=== PATIENT | male | born 1985 | race African-American/Black ===

== ENCOUNTER 2019-11-16 19:28 | Emergency (ER) | payer MEDICAID ==
[2019-11-16] MEDS ORDERED: HYDROCODONE/ACETAMINOPHEN 5-325 MG TABLET PO ONE (20:33)
[2019-11-16] MEDS ORDERED: CEPHALEXIN 500 MG CAPSULE PO ONE (20:33)
--- NOTE | 2019-11-16 20:33 | ER Document Report ---
ED Medical Screen (RME) - General Chief Complaint: Knee Pain Stated Complaint: KNEE PAIN Time Seen by Provider: 11/16/19 20:25 TRAVEL OUTSIDE OF THE U.S. IN LAST 30 DAYS: No - HPI Notes: 11/16/19 20:32 Patient is a 34-year-old male who had a bursitis surgery performed at [facility] a couple days ago and discharged today from the hospital presents because he continues to have right knee pain, but [facility] will not give him any of his medicines as he does not have an ID card. He was prescribed pain medicine as well as an antibiotic. No fever or chest pain. Patient states that he does not get paid until next months we cannot get or afford an ID card at this time. Patient would benefit from social work consult. I have treated and performed a rapid initial assessment of this patient. A comp rehensive ED assessment and evaluation of the patient, analysis of test results and completion of medical decision making process will be conducted by additional ED providers. PHYSICAL EXAMINATION: GENERAL: Well-appearing, well-nourished and in no acute distress. A&Ox4. Answers questions appropriately. Right knee: There is scant discharge noted from the 1 suture site, but sutures otherwise in place at this time. - Related Data Allergies/Adverse Reactions: No Known Allergies Allergy (Verified 05/08/15 16:48) Past Medical History Pulmonary Medical History: Reports: Hx Asthma - as child Skin Medical History: Reports Hx MRSA - + culture today - Immunizations Hx Diphtheria, Pertussis, Tetanus Vaccination: No Physical Exam - Vital signs Vitals: Temp Pulse Resp BP Pulse Ox 98.9 F 96 18 128/64 H 100 11/16/19 19:54 11/16/19 19:54 11/16/19 19:54 11/16/19 19:54 11/16/19 19:54 Course - Vital Signs Vital signs: Temp Pulse Resp BP Pulse Ox 98.9 F 96 18 128/64 H 100 11/16/19 19:54 11/16/19 19:54 11/16/19 19:54 11/16/19 19:54 11/16/19 19:54
[2019-11-16 22:01] LABS: ABSOLUTE BASOPHILS # (AUTO) 0.1 10^3/uL (0.0-0.2); ABSOLUTE EOSINOPHILS # (AUTO) 0.2 10^3/uL (0.0-0.6); ABSOLUTE LYMPHOCYTES (AUTO) 1.7 10^3/uL (0.5-4.7); ABSOLUTE MONOCYTES (AUTO) 0.4 10^3/uL (0.1-1.4); ABSOLUTE NEUT (AUTO) 2.9 10^3/uL (1.7-8.2); BASOPHILS % (AUTO) 1.2 % (0-2); EOSINOPHILS % (AUTO) 3.1 % (0-6); HEMATOCRIT 39.7 % (37.9-51.0); HEMOGLOBIN 13.1 g/dL (13.5-17.0); MEAN CORPUSCULAR HEMOGLOBIN 26.8 pg (27.0-33.4); MEAN CORPUSCULAR HGB CONC 32.9 g/dL (32.0-36.0); MEAN CORPUSCULAR VOLUME 82 fl (80-97); MONOCYTES % (AUTO) 8.4 % (3-13); PLATELET COUNT 401 10^3/uL (150-450); RED BLOOD COUNT 4.87 10^6/uL (4.35-5.55); RED CELL DISTRIBUTION WIDTH 13.7 % (11.5-14.0); SEGMENTED NEUTROPHILS % (AUTO) 55.3 % (42-78); TOTAL CELLS COUNTED % (AUTO) 100 %; WHITE BLOOD COUNT 5.2 10^3/uL (4.0-10.5)
[2019-11-16 22:16] LABS: ALBUMIN 4.2 g/dL (3.5-5.0); ALKALINE PHOSPHATASE 77 U/L (38-126); ANION GAP 10 (5-19); ASPARTATE AMINO TRANSFERASE 22 U/L (17-59); BILIRUBIN,TOTAL 0.2 mg/dL (0.2-1.3); BLOOD UREA NITROGEN 16 mg/dL (7-20); CARBON DIOXIDE 29 mmol/L (22-30); CHLORIDE 102 mmol/L (98-107); GLUCOSE 80 mg/dL (75-110); POTASSIUM 4.4 mmol/L (3.6-5.0); TOTAL PROTEIN 7.6 g/dL (6.3-8.2)
--- NOTE | 2019-11-16 22:51 | ER Document Report ---
ED Extremity Problem, Lower - General Chief Complaint: Knee Pain Stated Complaint: KNEE PAIN Time Seen by Provider: 11/16/19 20:25 Mode of Arrival: Ambulatory Information source: Patient Notes: Patient is a 4-year-old male who presents to the ED after being discharged from [facility] today. Patient reports that he was admitted to the hospital 1 week ago with chest pain and determined that his chest pain was noncardiac. Patient also had bursitis of his right knee that was taken to the operating room per him and it was incised and drained and then repaired with sutures. It was prescribed per Percocet and Keflex and to follow-up with the [facility] in the [facility]. Patient also has referrals to follow-up with [facility] as well. Patient reports that he was unable to coal picker his prescription at the pharmacist because he could not produce any valid identification. Therefore patient comes to the ED to receive medicines for pain and antibiotic. By the time of my examination of patient patient through the triage system had already received 1 dose of hydrocodone and Keflex 500 mg p.o. TRAVEL OUTSIDE OF THE U.S. IN LAST 30 DAYS: No - HPI Location: Knee Occurred: Other - Patient was an inpatient at [facility] in [place]. Just discharged this a.m. Patient unable to fill prescriptions therefore comes to the ED. Where: Other - Reports the knee swelling noted while in the hospital at [facility] over the past week. States surgery was 3 days ago. Onset/Duration: Gradual Quality of pain: Achy Severity: Moderate Pain Level: 3 Context: Other - No reported injury the patient shares regarding the bursitis swelling in his right knee. 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 Endocrine Medical History: Reports: None Renal/ Medical History: Reports: None Malignancy Medical History: Reports None GI Medical History: Reports: None Musculoskeletal Medical History: Reports Other - Bursitis right knee Skin Medical History: Reports Hx MRSA - + culture today Psychiatric Medical History: Reports: None Traumatic Medical History: Reports: None Infectious Medical History: Reports: None - Immunizations Hx Diphtheria, Pertussis, Tetanus Vaccination: No Review of Systems - Review of Systems Constitutional: Weight loss EENT: No symptoms reported Cardiovascular: Other - Chest pain work-up was done while at [facility] over the past week. Patient was found to have no cardiac acute process at the time. Patient was discharged diagnosis was chest pain of unknown etiology. Respiratory: No symptoms reported Gastrointestinal: No symptoms reported Genitourinary: No symptoms reported Male Genitourinary: No symptoms reported Musculoskeletal: Joint pain, Other - Right knee bursitis that was incised and drained. Patient had this procedure done at [facility] he states 3 days ago. Patient was discharged home today from [facility] and was unable to fill prescriptions. Skin: No symptoms reported Hematologic/Lymphatic: No symptoms reported Neurological/Psychological: Other - Familial ataxia Physical Exam - Vital signs Vitals: Temp Pulse Resp BP Pulse Ox 98.9 F 96 18 128/64 H 100 11/16/19 19:54 11/16/19 19:54 11/16/19 19:54 11/16/19 19:54 11/16/19 19:54 Interpretation: Normal - Extremities General upper extremity: Normal inspection, Nontender, Normal color, Normal ROM, Normal temperature General lower extremity: Normal inspection, Nontender, Normal color, Normal ROM, Normal temperature, Normal weight bearing. No: Yuki's sign Knee: Other - Right knee with dressing over the anterior knee area. Dressing was removed and noted midline surgical scar with sutures in place wound is not dehisced. There is some minimal trace oozing of serosanguineous fluid from the inferior border of the wound site. There is no erythema or heat Noted. Patient has anterior posterior range of motion. Course - Vital Signs Vital signs: Temp Pulse Resp BP Pulse Ox 98.9 F 96 18 128/64 H 100 11/16/19 19:54 11/16/19 19:54 11/16/19 19:54 11/16/19 19:54 11/16/19 19:54 - Laboratory Result Diagrams: 11/16/19 21:50 11/16/19 21:50 Laboratory results interpreted by me: 11/16/19 21:50 Hgb 13.1 L MCH 26.8 L 11/16/19 23:22 Laboratory results within normal limits with a normal white count normal H&H. Normal chemistry. Discharge - Discharge Clinical Impression: Prepatellar bursitis, right knee, Surgical wound present Condition: Stable Disposition: HOME, SELF-CARE Additional Instructions: [facility] [address] [place] [id number] Wound Care After I&D 1. If an antibiotic is prescribed please try to take on a regular schedule as this may help resolve your infection faster. 2. Pain will usually be very well managed with [id number] medications such as Tylenol, Advil, or Aleve. If a narcotic prescription is used you cannot take this and drive or operate dangerous machinery while on this medication. 3. If bleeding occurs postoperatively apply firm pressure over the site for 10 minutes and it will usually stop. If it persists call the office and return during office hours or go to the emergency room in the evenings or weekends. 4. You may shower the next day. It is usually best to remove the outer dressing before the shower. Then gently pull out the gauze packing inside the abscess cavity. Do not moisten prior to removal. Wash any soap out of the wound daily. 5. After your shower and the packing has been removed you should gently clean the abscess cavity with 2-3 Q-tips and a solution of saline and peroxide that was sent home with you. If you did not receive this solution, you can mix peroxide and water as the peroxide will clean even tap water of any bacteria. Insert the Q-tip into the solution and then gently into the abscess cavity to keep the skin edges apart, gently swabbing using a total of 2- 3 Q-tips. This helps to keep the skin open to allow the abscess to heal from the inside out. If the skin heals too fast the abscess will reoccur as the skin closes over an open hole. Repack with damp gauze with saline and peroxide. No wet part should touch the skin edge. Cover the site with a gauze dressing and tape at first after daily wound care. When the drainage is less you may switch over to band aids if more convenient. 6. When only the skin edges are left to heal you may clean the surface with the solution on a cotton ball. 7. Schedule a follow up to monitor healing. In some cases an excision of the area may be needed in the future to decrease risk of recurrence. 8. If any problems or questions call during office hours [phone]. If at night or on the weekend you may call [facility] [phone] and ask for the surgicalist instructional writer. You have prescriptions for narcotic pain medication and Keflex for you to obtain from the pharmacy. Is understand these prescriptions were sent there from your clinic discharge from the ED from the hospital at [facility] today. Hopefully you will be able to obtain your prescriptions so that you can continue your care for your wound site. You have already appointments to follow-up with the [facility] clinics as well as you were advised to follow-up with the [facility] department in primary care clinic. No new prescriptions at this time.
[2019-11-16] MEDS ORDERED: ACETAMINOPHEN 325 MG TABLET PO ONE (23:08)
[2019-11-16 23:39] VITALS: BP 127/51
== END 2019-11-16 23:37 | disposition home or self-care (01) ==
LOC: ER 19:28
DX: M70.41 Prepatellar bursitis, right knee (principal); M25.561 Pain in right knee; Z98.890 Other specified postprocedural states; Z86.14 Personal history of Methicillin resistant Staphylococcus aureus infection; Z59.0 Homelessness
CPT/HCPCS: 36415; 80053; 85025; 99283

== ENCOUNTER 2019-11-23 18:01 | Emergency (ER) | payer MEDICAID ==
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
--- NOTE | 2019-11-23 20:55 | EKG REPORT ---
SEVERITY:- ABNORMAL ECG - SINUS RHYTHM LEFT ATRIAL ABNORMALITY CONSIDER RIGHT VENTRICULAR HYPERTROPHY ST ELEV, PROBABLE NORMAL EARLY REPOL PATTERN : Confirmed by: Imtiaz Villanueva 23-Nov-2019 20:54:19
--- NOTE | 2019-11-23 21:01 | RADIOLOGY REPORT (SQ) ---
EXAM DESCRIPTION: X-RAY CHEST- TWO VIEWS CLINICAL HISTORY: Chest pain COMPARISON: None available TECHNIQUE: 2 views of the chest FINDINGS: Lungs appear hyperexpanded with flattening of the diaphragms. There are no discrete air space infiltrates, pneumothoraces or pleural effusions. The pulmonary vascularity is normal. The cardiomediastinal silhouette is normal in size. No suspicious lytic or blastic osseous lesions are identified. IMPRESSION: Hyperexpanded appearance with flattening of the diaphragms is nonspecific but may represent underlying COPD. Clinical correlation is advised.
[2019-11-23 21:08] LABS: ABSOLUTE EOSINOPHILS # (AUTO) 0.1 10^3/uL (0.0-0.6); ABSOLUTE LYMPHOCYTES (AUTO) 1.8 10^3/uL (0.5-4.7); ABSOLUTE MONOCYTES (AUTO) 0.4 10^3/uL (0.1-1.4); ABSOLUTE NEUT (AUTO) 3.2 10^3/uL (1.7-8.2); BASOPHILS % (AUTO) 0.8 % (0-2); EOSINOPHILS % (AUTO) 1.5 % (0-6); HEMATOCRIT 37.1 % (37.9-51.0); HEMOGLOBIN 12.3 g/dL (13.5-17.0); LYMPHOCYTES % (AUTO) 32.1 % (13-45); MEAN CORPUSCULAR HEMOGLOBIN 27.2 pg (27.0-33.4); MEAN CORPUSCULAR HGB CONC 33.2 g/dL (32.0-36.0); MEAN CORPUSCULAR VOLUME 82 fl (80-97); MONOCYTES % (AUTO) 7.2 % (3-13); PLATELET COUNT 450 10^3/uL (150-450); RED BLOOD COUNT 4.54 10^6/uL (4.35-5.55); RED CELL DISTRIBUTION WIDTH 13.8 % (11.5-14.0); SEGMENTED NEUTROPHILS % (AUTO) 58.4 % (42-78); TOTAL CELLS COUNTED % (AUTO) 100 %; WHITE BLOOD COUNT 5.5 10^3/uL (4.0-10.5)
[2019-11-23 21:36] LABS: ALBUMIN 4.1 g/dL (3.5-5.0); ALKALINE PHOSPHATASE 74 U/L (38-126); ANION GAP 10 (5-19); ASPARTATE AMINO TRANSFERASE 21 U/L (17-59); BILIRUBIN,DIRECT 0.2 mg/dL (0.0-0.4); BILIRUBIN,TOTAL 0.6 mg/dL (0.2-1.3); BLOOD UREA NITROGEN 20 mg/dL (7-20); CALCIUM 10.1 mg/dL (8.4-10.2); CARBON DIOXIDE 29 mmol/L (22-30); CHLORIDE 102 mmol/L (98-107); GLUCOSE 86 mg/dL (75-110); TOTAL PROTEIN 7.5 g/dL (6.3-8.2)
--- NOTE | 2019-11-24 00:40 | ER Document Report ---
Doctor's Note Notes: 11/24/19 00:38 Patient seen and examined. In short this is a 34-year-old gentleman who presented to the emergency department for evaluation of right-sided chest pain. He was initially seen by Dr. Scott. Patient had a negative cardiac work-up at [facility] in the last several months. I wanted to evaluate the patient. He does have some minimal right-sided chest pain, which he states is slightly better than before, but does continue. He denies any other acute complaints or concerns at this time. His vital signs remained stable, with a heart rate of 95, blood pressure 141/76, pulse ox 100% on room air, and respiratory rate of 19. Physical exam reveals no acute distress, heart regular rate and rhythm, lungs are clear to auscultation bilaterally. Chart was reviewed. Patient's laboratory investigations are unremarkable. He had a negative troponin. At this point, secondary to his ataxia, patient remains a social hold, is medically cleared. He will be seen again by the physician in the morning after case management consult. (SANIYA LEE) 11/25/19 06:11 Patient reexamined this morning. Patient is resting comfortably in the bed listening to his headphones and playing on his phone. He states he has no complaints or concerns this morning and is content. Per social work we apparently should be able to get the patient a scooter today and have the patient arrange for discharge. Patient has declined assisted living placement at this time. (NIRAJ ROGERS)
[2019-11-25] MEDS ORDERED: ACETAMINOPHEN 325 MG TABLET PO ONE (21:13)
[2019-11-26] MEDS ORDERED: ACETAMINOPHEN 325 MG TABLET PO ONE (05:40)
--- NOTE | 2019-11-27 11:14 | ER Document Report ---
Doctor's Note Notes: 11/27/19 11:10 Physicians note for 27 November 2019. Patient comfortable in bed. Please note I removed sutures from his knee wound that had been present for more than 2 weeks, according to patient history, yesterday. 5 sutures removed from his right knee. Today patient is doing well. Nursing had removed any dried skin that he had had over his right knee wound yesterday. His appetite is good. He reports he has no problems. He denies any defecation urination back pain abdominal pain cephalgia fever chills cough cold anxiety diaphoresis chest pain
--- NOTE | 2019-11-29 19:08 | ER Document Report ---
Doctor's Note Notes: 11/29/19 19:07 The patient was seen and examined by and he has no acute issues today. Patient is still a social hold since he is waiting on a scooter. Patient has started to become rude to the nursing staff. The patient told me he wanted to be moved to another section of the ER.
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
--- NOTE | 2019-12-01 10:16 | ER Document Report ---
Doctor's Note Notes: 12/01/19 10:15 Patient is resting in the bed watching videos on his phone. Patient has eaten breakfast this morning without problem. He is also taken a shower with the assistance of the nurse without problem. He denies any problems or concerns at this time. Heart is regular rate and rhythm. Lungs are clear to auscultation bilaterally. Skin is warm and dry. Abdomen is soft nontender and nondistended. We are still waiting on social work's assistance in placement and obtaining a scooter. I will attempt to get some physical therapy intervention today as patient's mobility has been limited.
--- NOTE | 2019-12-02 08:29 | ER Document Report ---
Doctor's Note Notes: 12/02/19 08:28 Patient reexamined this morning by me. Patient has sleeping comfortably in the bed. He was easily aroused. He denies any complaints or concerns at this time. He did receive a physical therapy evaluation yesterday and is going to receive twice weekly physical therapy while he is here. Patient has been tolerating p.o.'s well per nursing. Heart is regular rate and rhythm lungs are clear to auscultation. Skin is warm and dry. Abdomen is soft nontender and nondistended.
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
--- NOTE | 2019-12-04 12:02 | ER Document Report ---
Doctor's Note Notes: 12/04/19 12:01 Mr. Charlton remains on social hold and is seen for daily rounding. He has no new complaints or concerns today. Further disposition remains pending per social work/discharge planning service.
--- NOTE | 2019-12-07 13:07 | ER Document Report ---
Doctor's Note Notes: 12/07/19 13:02 Patient reevaluated at approximately 1 PM. Patient is sitting in the room smiling eating lunch as well as using his phone and watching TV. He also has headphones around his neck and apparently is been listening to his headphones. He denies that he has any complaints or concerns. He said everything is going well. We are currently still waiting on a scooter so that we can discharge the patient. He has no medical concerns at this time. He remains a social hold for placement. I discussed his physical activity level with the nurse. She states he is still recieving the physical therapy consultations. Nurse states he is active in his room consistently. Neuro, awake, alert. at baseline skin - warm and dry heart - RRR, no murmur Lungs-CTA B
--- NOTE | 2019-12-07 15:06 | ER Document Report ---
Doctor's Note Notes: 12/06/19 15:06 Patient was seen and assessed in no acute distress. Vital signs are stable. Patient is awaiting social work placement and treatment. Patient has eaten meals with no acute distress.
--- NOTE | 2019-12-08 18:33 | ER Document Report ---
Doctor's Note Notes: 12/08/19 18:31 Patient seen and examined. He is currently a social hold, awaiting scooter. He has a history of ataxia. The patient has no complaints or concerns. Eating and drinking normally. Normal urination, normal bowel movements. He is listening to his headphones, has no issues at this time. Physical exam reveals a pleasant 34-year-old male who appears stated age in no acute distress. Head is normocephalic and atraumatic. Heart regular rate and rhythm, lungs clear to station bilaterally. Skin is warm and dry. Assessment, ataxia, need for scooter for mobility. Plan, scooter is ordered. Patient is stable and has no complaints. We will continue to monitor.
--- NOTE | 2019-12-09 18:36 | ER Document Report ---
Doctor's Note Notes: 12/09/19 18:36 Patient has no medical concerns at this time. He states that he did not like his dinner tray and had a thrown away. He states because of this he is still hungry. Patient is sitting in the room texting on his phone. Heart is regular rate and rhythm. Lungs are clear auscultation bilaterally. Abdomen soft nontender nondistended. Patient did receive physical therapy today and did ambulate about the emergency department. He is still awaiting placement and a scooter.
--- NOTE | 2019-12-10 12:54 | ER Document Report ---
Doctor's Note Notes: 12/10/19 12:53 Patient remains in the ED pending disposition by discharge planning/social work. He has no new complaints this time. His cardiac rhythm is regular. His chest is clear his abdomen is soft and nontender. His vital signs are stable. Social work is still trying to replace his scooter to allow him mobility.
--- NOTE | 2019-12-11 13:31 | ER Document Report ---
Doctor's Note Notes: 12/11/19 13:30 Patient doing well today and his scooter was put together by staff and he is ready to leave the facilities after multiple day stay
[2019-12-11 13:55] VITALS: BP 148/55
== END 2019-12-11 13:55 | disposition home or self-care (01) ==
LOC: ER 18:01
DX: R07.9 Chest pain, unspecified (principal); Z86.14 Personal history of Methicillin resistant Staphylococcus aureus infection
CPT/HCPCS: 93005; 99285; 36415; 85025; 80053; 84484; 71046; 93010; J3490 ×2

== ENCOUNTER 2020-01-19 19:54 | Emergency (ER) | payer MEDICAID ==
--- NOTE | 2020-01-19 20:07 | ER Document Report ---
HPI - HPI Patient complains to provider of: ear pain Time Seen by Provider: 01/19/20 20:01 Onset: Other - 3 days Onset/Duration: Persistent Quality of pain: Achy Context: Patient presents complaining of left ear pain for the past 3 days. Patient denies any drainage from the ear or fever. Patient also states that he broke a tooth today. Associated Symptoms: Earache. denies: Fever Exacerbated by: Denies Relieved by: Denies Similar symptoms previously: No Recently seen / treated by doctor: No - ROS ROS below otherwise negative: Yes Systems Reviewed and Negative: Yes All other systems reviewed and negative - CONSTITUTIONAL Constitutional: DENIES: Fever, Chills - EENT EENT: REPORTS: Ear Pain Notes: Dental pain - CARDIOVASCULAR Cardiovascular: DENIES: Chest pain - RESPIRATORY Respiratory: DENIES: Coughing - GASTROINTESTINAL Gastrointestinal: DENIES: Nausea - MUSCULOSKELETAL Musculoskeletal: DENIES: Neck Pain - DERM Skin Color: Normal Skin Problems: None Past Medical History - General Information source: Patient - Social History Smoking Status: Never Smoker Frequency of alcohol use: None Drug Abuse: None Occupation: None Family History: None, Other - cerebellum degeneration - Medical History Medical History: Other - Ataxia Pulmonary Medical History: Reports: Hx Asthma - as child Skin Medical History: Reports Hx MRSA - + culture today Past Surgical History: Reports: Hx Orthopedic Surgery - rt knee surg - Immunizations Hx Diphtheria, Pertussis, Tetanus Vaccination: No Vertical Provider Document - CONSTITUTIONAL Agree With Documented VS: Yes Exam Limitations: No Limitations General Appearance: WD/WN, No Apparent Distress - INFECTION CONTROL TRAVEL OUTSIDE OF THE [place] IN LAST 30 DAYS: No - HEENT HEENT: Atraumatic, Normocephalic. negative: Pharyngeal Exudate, Pharyngeal Tenderness, Pharyngeal Erythema Mouth Diagram: 1 - Dental fracture Notes: Bilateral cerumen impaction - NECK Neck: Normal Inspection, Supple. negative: Lymphadenopathy-Left, Lymphadenopathy-Right - RESPIRATORY Respiratory: No Respiratory Distress - BACK Back: Normal Inspection - NEURO Level of Consciousness: Awake, Alert, Appropriate - DERM Integumentary: Warm, Dry Course - Re-evaluation Re-evalutation: 01/19/20 21:28 Ear irrigated with warm water and peroxide after Colace was instilled in ear. Patient tolerated procedure well, normal left TM. Patient reports hearing has improved as well. - Vital Signs Vital signs: Temp Pulse Resp BP Pulse Ox 98.5 F 97 18 141/87 H 97 01/19/20 20:01 01/19/20 20:01 01/19/20 20:01 01/19/20 20:01 01/19/20 20:01 Discharge - Discharge Clinical Impression: Pain, dental, Impacted cerumen of left ear Condition: Stable Disposition: HOME, SELF-CARE Instructions: Cerumen Impaction ([facility]), Oral Narcotic Medication ([facility]), Penicillin V K ([facility]), Toothache ([facility]) Additional Instructions: Return immediately for any new or worsening symptoms Followup with your primary care provider, call tomorrow to make a followup appointment Follow-up with a dental care provider Prescriptions: Naproxen [Naprosyn 250 Nmg Tablet] 1 tab PO BID #14 tablet Penicillin V Potassium [Penicillin Vk 500 mg Tablet] 500 mg PO BID #20 tablet Referrals: [facility] [Provider Group] - Follow up as needed [facility] [Provider Group] - Follow up as needed
[2020-01-19] MEDS ORDERED: DOCUSATE SODIUM 100 MG/10 ML UDC AS ONE (20:55)
[2020-01-19] MEDS ORDERED: HYDROCODONE/ACETAMINOPHEN 5-325 MG (6 TAB/ER DISP) PO PRN (21:28)
[2020-01-19] MEDS ORDERED: PENICILLIN V POTASSIUM 500 MG TABLET PO ONE (21:29)
[2020-01-19 21:45] VITALS: BP 135/78
== END 2020-01-19 21:45 | disposition home or self-care (01) ==
LOC: ER 19:54
DX: H61.22 Impacted cerumen, left ear (principal); S02.5XXA Fracture of tooth (traumatic), initial encounter for closed fracture; X58.XXXA Exposure to other specified factors, initial encounter; H92.02 Otalgia, left ear; J45.909 Unspecified asthma, uncomplicated
CPT/HCPCS: 99282; J3490 ×2